=== PATIENT | female | born 1975 | race Caucasian/White ===

== ENCOUNTER 2019-07-23 00:42 | Inpatient (IN) ==
[2019-07-23] MEDS ORDERED: SODIUM CHLORIDE 0.9% 500 ML IV STA (01:21)
[2019-07-23] MEDS ORDERED: LORazepam 2 MG/1 ML VIAL ONE (02:13)
[2019-07-23 02:37] LABS: Basophils % 0.3 % (0.0-0.8); Eosinophils % 0.1 % (0.00-10.9); Hematocrit 39.3 VOL% (35.7-47.0); Immature Granulocytes % 0.2 %; Immature Granulocytes Absolute 0.02 #; Lymphocytes # 0.9 10*3/uL (1.4-4.0); Lymphocytes % 10.4 % (21.3-54.2); Mean Corpuscular HGB Conc 33.1 GM/DL (32-36); Mean Corpuscular Volume 90.6 FL (87-102); Mean Platelet Volume 9.9 FL (9.6-12.0); Monocytes % 2.6 % (1.7-12.7); Neutrophils % 86.4 % (38.7-73.9); Platelet Count 342 T/CUMM (130-400); Red Blood Count 4.34 MC/CUMM (3.8-5.5); Red Cell Distribution Width 13.6 % (9.3-17.3)
[2019-07-23 02:49] LABS: Alanine Aminotransferase 43 U/L (13-56); Albumin 3.5 G/DL (3.4-5.0); Alkaline Phosphatase 93 U/L (45-117); Aspartate Amino Transferase 29 U/L (0-37); Bilirubin,Total < 0.39 MG/DL (0.2-1.0); Blood Urea Nitrogen 13 MG/DL (7-18); Calcium 8.5 MG/DL (8.5-10.1); Estimated Glom Filtration Rate 68 ML/MIN; Glucose 106 MG/DL (74-106); Total Protein 7.5 G/DL (6.4-8.3)
[2019-07-23] MEDS ORDERED: KETOROLAC 30 MG/1 ML VIAL IV STA (05:16)
[2019-07-23] MEDS ORDERED: ONDANSETRON 4 MG/2 ML VIAL IV PRN (05:51)
[2019-07-23] MEDS ORDERED: LORazepam 2 MG/1 ML VIAL IV PRN (06:11)
[2019-07-23] MEDS: SODIUM CHLORIDE 0.45% 1,000 ML IV SCH ×3 (06:34→18:02)
[2019-07-23] MEDS: levETIRAcetam 500 MG TABLET PO SCH ×2 (10:47→20:57)
[2019-07-23] MEDS: THIAMINE 200 MG/2 ML VIAL IV SCH (10:47)
[2019-07-23] MEDS: PANTOPRAZOLE 40 MG TABLET PO SCH (10:48)
[2019-07-24] MEDS: SODIUM CHLORIDE 0.45% 1,000 ML IV SCH (00:50)
[2019-07-24 04:37] LABS: Basophils # 0.1 10*3/uL (0.0-0.2); Eosinophils # 0.1 10*3/uL (0.0-0.87); Eosinophils % 1.6 % (0.00-10.9); Hematocrit 33.4 VOL% (35.7-47.0); Hemoglobin 10.8 GM/DL (12.0-16.0); Immature Granulocytes % 0.2 %; Immature Granulocytes Absolute 0.01 #; Lymphocytes # 2.1 10*3/uL (1.4-4.0); Lymphocytes % 41.3 % (21.3-54.2); Mean Corpuscular HGB Conc 32.3 GM/DL (32-36); Mean Corpuscular Volume 93.3 FL (87-102); Monocytes % 5.3 % (1.7-12.7); Neutrophils % 50.6 % (38.7-73.9); Platelet Count 251 T/CUMM (130-400); Red Blood Count 3.58 MC/CUMM (3.8-5.5); Red Cell Distribution Width 13.9 % (9.3-17.3); White Blood Count 5.1 T/CUMM (4-12)
[2019-07-24 04:51] LABS: Calcium 8.1 MG/DL (8.5-10.1); Osmolality,Calculated 282.8 MOS/KG (273-304)
[2019-07-24] MEDS ORDERED: NITROGLYCERIN SL 0.4 MG TABLET SL ONE (07:28)
[2019-07-24] MEDS: levETIRAcetam 500 MG TABLET PO SCH (08:39)
[2019-07-24] MEDS: PANTOPRAZOLE 40 MG TABLET PO SCH (08:39)
[2019-07-24] MEDS: THIAMINE 200 MG/2 ML VIAL IV SCH (08:42)
[2019-07-24 13:57] VITALS: BP 103/65
== END 2019-07-24 15:14 | disposition home or self-care (01) | DRG 101 ==
LOC: N.ED 00:42 → N.EDINP 05:51 → N.4E 06:28
PROVIDERS: ADMIT Internal Medicine; ATTEND Internal Medicine